=== PATIENT | male | born 2000 | race African-American/Black ===

== ENCOUNTER 2018-02-03 06:59 | Emergency (ER) | payer MEDICAID ==
[~2018-02-03] VITALS: Ht 160 cm; Wt 62.0 kg
[2018-02-03] MEDS ORDERED: HYDROCODONE/ACETAMINOPHEN 5/325MG TABLET PO STA (07:13)
[2018-02-03 07:17] VITALS: BP 127/83
[2018-02-03] MEDS ORDERED: ALBUTEROL (0.083%) 2.5MG/3ML NEB HHN STA (07:42)
[2018-02-03] MEDS ORDERED: IPRATROPIUM BROMIDE (0.02%) 0.5MG/2.5ML NEB HHN STA (07:42)
[2018-02-03] MEDS ORDERED: PREDNISONE 20MG TABLET PO STA (07:42)
[2018-02-03] MEDS ORDERED: ALBUTEROL (0.5%) 2.5MG/0.5ML NEB HHN ONE (07:56)
[2018-02-03] MEDS ORDERED: IPRATROPIUM BROMIDE (0.02%) 0.5MG/2.5ML NEB ONE (07:57)
[2018-02-03] MEDS ORDERED: ALBUTEROL (0.083%) 2.5MG/3ML NEB HHN SCH (08:00)
== END 2018-02-03 09:00 | disposition left against medical advice (07) ==
LOC: ER 06:59
DX: J45.901 Unspecified asthma with (acute) exacerbation (principal); F12.10 Cannabis abuse, uncomplicated
CPT/HCPCS: 94640; 99284; J7512; J7611; Z7610

== ENCOUNTER 2018-11-08 07:27 | Emergency (ER) | payer OTHER, MEDICAID ==
[~2018-11-08] VITALS: Ht 160 cm; Wt 66.0 kg
[2018-11-08] MEDS ORDERED: PREDNISONE 20MG TABLET PO STA (07:41)
[2018-11-08] MEDS ORDERED: IPRATROPIUM BROMIDE (0.02%) 0.5MG/2.5ML NEB HHN STA (07:41)
[2018-11-08] MEDS ORDERED: ALBUTEROL (0.083%) 2.5MG/3ML NEB HHN STA (07:41)
[2018-11-08 09:56] VITALS: BP 129/63
== END 2018-11-08 10:01 | disposition home or self-care (01) ==
LOC: ER 07:27
DX: J45.901 Unspecified asthma with (acute) exacerbation (principal); F12.10 Cannabis abuse, uncomplicated
CPT/HCPCS: 94644; 99285; J7512; J7611

== ENCOUNTER 2018-11-14 11:01 | Emergency (ER) | payer OTHER, MEDICAID ==
[~2018-11-14] VITALS: Ht 160 cm; Wt 64.0 kg
[2018-11-14 11:08] VITALS: BP 113/59
[2018-11-14] MEDS ORDERED: IPRATROPIUM BROMIDE (0.02%) 0.5MG/2.5ML NEB HHN STA (11:16)
[2018-11-14] MEDS ORDERED: ALBUTEROL (0.083%) 2.5MG/3ML NEB HHN STA (11:16)
[2018-11-14] MEDS ORDERED: METHYLPREDNISOLONE SOD SUCC 125 MG/2 ML VIAL IV ONE (11:30)
[2018-11-14] MEDS ORDERED: SODIUM CHLORIDE 0.9% 1,000 ML IV ONE (11:30)
== END 2018-11-14 13:07 | disposition home or self-care (01) ==
LOC: ER 11:01
DX: J45.901 Unspecified asthma with (acute) exacerbation (principal); F12.10 Cannabis abuse, uncomplicated
CPT/HCPCS: 71045; 94640; 96374; 99283; J2930; J7030; J7611; Z7610

== ENCOUNTER 2019-04-13 04:43 | Emergency (ER) | payer OTHER, MEDICAID ==
[~2019-04-13] VITALS: Ht 160 cm; Wt 62.0 kg
[2019-04-13] MEDS ORDERED: PREDNISONE 20MG TABLET PO STA (05:01)
[2019-04-13] MEDS ORDERED: IPRATROPIUM BROMIDE (0.02%) 0.5MG/2.5ML NEB HHN STA (05:01)
[2019-04-13] MEDS ORDERED: ALBUTEROL (0.083%) 2.5MG/3ML NEB HHN STA (05:01)
[2019-04-13 06:05] VITALS: BP 121/79
== END 2019-04-13 06:22 | disposition home or self-care (01) ==
LOC: ER 04:43
DX: J45.901 Unspecified asthma with (acute) exacerbation (principal); F12.10 Cannabis abuse, uncomplicated
CPT/HCPCS: 71045; 94644; 99285; J7512; J7611; Z7610

== ENCOUNTER 2023-04-17 01:32 | Emergency (ER) | payer OTHER, MEDICAID ==
[~2023-04-17] VITALS: Ht 160 cm; Wt 75.5 kg
[2023-04-17 01:34] VITALS: BP 110/69; TEMP 98
[2023-04-17] MEDS ORDERED: PREDNISONE 20MG TABLET PO STA (02:24)
[2023-04-17] MEDS ORDERED: ALBUTEROL (0.083%) 2.5MG/3ML NEB HHN STA (02:24)
[2023-04-17] MEDS ORDERED: IPRATROPIUM BROMIDE (0.02%) 0.5MG/2.5ML NEB HHN STA (02:24)
[2023-04-17 02:40] VITALS: PULSE 84; RESP 24; O2SAT 95
[2023-04-17] MEDS ORDERED: ALBU6.7H15 INH (03:17)
[2023-04-17] MEDS ORDERED: P20 MT (03:17)
== END 2023-04-17 04:55 | disposition home or self-care (01) ==
LOC: ER 01:32
DX: J45.901 Unspecified asthma with (acute) exacerbation (principal); F12.90 Cannabis use, unspecified, uncomplicated
CPT/HCPCS: 94640; 99283; Z7610 ×2